=== PATIENT | male | born 1995 | race African-American/Black ===

== ENCOUNTER 2016-07-24 10:52 | Emergency (ER) | payer SELFPAY ==
[~2016-07-24] VITALS: Ht 180.3 cm; Wt 83.0 kg
[2016-07-24 11:01] VITALS: BP 129/75
== END 2016-07-24 12:19 | disposition home or self-care (01) ==
LOC: ER 12:07
DX: B07.9 Viral wart, unspecified (principal)
CPT/HCPCS: 99282